=== PATIENT | male | born 1975 | race Caucasian/White ===

== ENCOUNTER 2024-01-07 13:15 | Emergency (ER) | payer OTHER ==
[2024-01-07] MEDS: Acetaminophen/oxyCODONE 325-5 MG Tab PO ONE (15:49)
== END 2024-01-07 15:50 | disposition home or self-care (01) ==
LOC: JP.ED 13:15
DX: S93.401A Sprain of unspecified ligament of right ankle, initial encounter (principal); Z87.891 Personal history of nicotine dependence; X50.1XXA Overexertion from prolonged static or awkward postures, initial encounter
CPT/HCPCS: 73610; 99283; A9270